=== PATIENT | male | born 1945 | race Caucasian/White ===

== ENCOUNTER → 2021-09-28 | Outpatient (CLI) | payer MEDICARE, BC ==
[~2021-09-28] MED LIST: ACTOS15 MG PO; ARICEPT10 MG PO; COENZYME Q10200 MG PO; CRESTOR5 MG PO; DITROPAN XL5 MG PO; ECOTRIN81 MG PO; FLOMAX0.4 MG PO; JANUMET 50-1,01 EACH PO; LATANOPROST 0.7.5 ML OP; LEVAQUIN500 MG PO; LYSINE500 MG PO; MICROZIDE12.5 MG PO; MIRALAX17 GM PO; SIMVASTATIN20 MG PO; SYNTHROID25 MCG PO; VITAMIN B-121000 MCG PO; VITAMIN D-40400 UNIT PO; VITAMIN D1000 UNIT PO
== END ==
LOC: CT 10:21
DX: R10.30 Lower abdominal pain, unspecified (principal); C61 Malignant neoplasm of prostate; R10.32 Left lower quadrant pain; M47.816 Spondylosis without myelopathy or radiculopathy, lumbar region
CPT/HCPCS: 36415; 82565; 84520; Q9967